=== PATIENT | male | born 1990 ===

== ENCOUNTER 2022-01-01 18:39 | Emergency (ER) | payer SELFPAY ==
[2022-01-01 23:30] VITALS: BP 148/101
[2022-01-02] MEDS ORDERED: HYDROcodone/ACETAMINOPHEN 5-325 MG TAB PO ONE (00:28)
[2022-01-02] MEDS ORDERED: TETANUS,DIPH,PERTUSS(ACELL) VACCINE 0.5 ML SYRINGE IM ONE (00:28)
[2022-01-02] MEDS ORDERED: LIDOCAINE (1%) 10 MG/1 ML VIAL 20 ML MDV INFILTRATI ONE (00:28)
[2022-01-02] MEDS ORDERED: IBUPROFEN 600 MG TAB PO ONE (00:28)
[2022-01-02] MEDS ORDERED: ONDANSETRON 4 MG ODT TAB PO ONE (00:28)
--- NOTE | 2022-01-02 01:58 | Emergency Department Report ---
- General Chief Complaint: Wound/Laceration Stated Complaint: CUT ON LT FINGER Source: patient Mode of arrival: Ambulatory Limitations: No Limitations - History of Present Illness Initial Comments: Patient is a 31-year-old male with no past medical history and who is not up-to-date with his tetanus vaccinations presents to the ED with complaint of acute onset bleeding painful left small finger laceration on palmar side after he accidentally cut his left small finger with a knife when cutting a piece of paper. Patient states that the bleeding is well controlled at this time. Patient denies numbness and tingling or weakness of left hand or left small finger, nausea and vomiting or syncope. -: Sudden, hour(s) (6) Location: other (left small finger) Extremity Location: Left: Hand (left small finger laceration) Place: home Patient Tetanus UTD: No (Given during this visit) Context: accidental, sharp object use Associated Symptoms: pain. denies: loss of feeling/numbness, suspect foreign body present, unable to move injured part, weakness followed by dizziness, nausea/vomiting, fever - Related Data Previous Rx's Medication Instructions Recorded Last Taken Type Ibuprofen [Motrin] 800 mg PO Q8HR PRN #30 tablet 01/02/22 Unknown Rx cephALEXin [Keflex] 500 mg PO Q8HR #30 cap 01/02/22 Unknown Rx Allergies Allergy/AdvReac Type Severity Reaction Status Date / Time No Known Allergies Allergy Verified 01/01/22 19:55 ED Review of Systems ROS: Stated complaint: CUT ON LT FINGER Other details as noted in HPI Constitutional: denies: chills, fever Eyes: denies: eye pain, eye discharge, vision change ENT: denies: ear pain, throat pain Respiratory: denies: cough, shortness of breath, wheezing Cardiovascular: denies: chest pain, palpitations Endocrine: no symptoms reported Gastrointestinal: denies: abdominal pain, nausea, diarrhea Genitourinary: denies: urgency, dysuria Musculoskeletal: arthralgia (Left small finger pain due to a bleeding laceration wound). denies: back pain, joint swelling Skin: other (Left small finger laceration wound with localized pain). denies: rash, lesions Neurological: denies: headache, weakness, paresthesias Psychiatric: denies: anxiety, depression Hematological/Lymphatic: denies: easy bleeding, easy bruising ED Past Medical Hx - Medications Home Medications: Home Medications Medication Instructions Recorded Confirmed Last Taken Type Ibuprofen [Motrin] 800 mg PO Q8HR PRN #30 tablet 01/02/22 Unknown Rx cephALEXin [Keflex] 500 mg PO Q8HR #30 cap 01/02/22 Unknown Rx ED Physical Exam - General Limitations: No Limitations General appearance: alert, in no apparent distress - Head Head exam: Present: atraumatic, normocephalic, normal inspection - Eye Eye exam: Present: normal appearance, PERRL, EOMI Pupils: Present: normal accommodation - ENT ENT exam: Present: normal exam, normal orophraynx, mucous membranes moist, TM's normal bilaterally, normal external ear exam - Neck Neck exam: Present: normal inspection, full ROM. Absent: tenderness - Respiratory Respiratory exam: Present: normal lung sounds bilaterally. Absent: respiratory distress, wheezes, rales, rhonchi, chest wall tenderness, accessory muscle use, decreased breath sounds, prolonged expiratory - Cardiovascular Cardiovascular Exam: Present: regular rate, normal rhythm, normal heart sounds. Absent: systolic murmur, diastolic murmur, rubs, gallop - GI/Abdominal GI/Abdominal exam: Present: soft, normal bowel sounds. Absent: tenderness, guarding, rebound, hyperactive bowel sounds, hypoactive bowel sounds, organomegaly, mass - Extremities Exam Extremities exam: Present: normal inspection, full ROM, tenderness (Palpable left small finger tenderness due to a 4 cm laceration wound on palmar side), normal capillary refill. Absent: pedal edema, joint swelling - Back Exam Back exam: Present: normal inspection, full ROM. Absent: tenderness, CVA tenderness (R), CVA tenderness (L), muscle spasm, paraspinal tenderness, vertebral tenderness - Neurological Exam Neurological exam: Present: alert, oriented X3, CN II-XII intact, normal gait, reflexes normal - Psychiatric Psychiatric exam: Present: normal affect, normal mood - Skin Skin exam: Present: warm, dry, intact, normal color, other (Bleeding 4 cm laceration wound on left small finger on palmar side). Absent: rash ED Course Vital Signs 01/01/22 01/01/22 19:21 23:29 Temperature 98.7 F 98.2 F Pulse Rate 96 H 117 H Respiratory 18 16 Rate Blood Pressure 163/104 Blood Pressure 148/101 [Right] O2 Sat by Pulse 95 98 Oximetry - Laceration /Wound Repair Left Palm Finger Wound Location: upper extremity (Left small finger laceration on palmar side) Wound Length (cm): 4 Wound's Depth, Shape: superficial, linear Wound Explored: contaminated Irrigated w/ Saline (ccs): 300 Betadine Prep?: Yes Anesthesia: 1% Lidocaine Volume Anesthetic (ccs): 5 Wound Debrided: extensive Wound Repaired With: sutures Suture Size/Type: 4:0, proline Number of Sutures: 7 Sterile Dressing Applied?: Yes Progress: Wound was cleaned extensively with normal saline and Betadine solutions. 1% lidocaine solution was used as a local anesthetic. Prolene 4-0 sutures were used for a total of 7 sutures. Patient tolerated the procedure well. The wound was then dressed appropriately. On reevaluation, the left small finger is neurovascularly intact. ED Medical Decision Making - Medical Decision Making This is a 31-year-old male with no past medical history and who is not up-to-date with his tetanus vaccinations presents to the ED with complaint of acute onset bleeding painful left small finger laceration on palmar side after he accidentally cut his left small finger with a knife when cutting a piece of paper. Patient states that the bleeding is well controlled at this time. In the ED, patient is alert and oriented x3 and is not in distress. Patient was treated for pain in the ED and also received booster tetanus vaccination. The left small finger laceration wound was extensively debrided with normal saline and Betadine solution. Lidocaine 1% solution was used as a local anesthetic through a digital block. When anesthesia was fully achieved, the wound was sutured per protocol using Prolene 4-0 sutures for a total of 7 sutures. Patient tolerated the procedure well. The wound was then dressed appropriately and the patient was discharged home on pain medication and prophylactic antibiot ics and advised to follow-up with his primary care physician in 7 to 10 days for reevaluation. Patient was also advised to return to the ED immediately if symptoms get worse, otherwise follow-up with his primary care physician or return to the ED in 12 to 14 days for suture removal. - Differential Diagnosis Finger laceration; puncture wound; finger injury; Critical care attestation.: If time is entered above; I have spent that time in minutes in the direct care of this critically ill patient, excluding procedure time. ED Disposition Clinical Impression: Laceration of left little finger w/o foreign body w/o damage to nail Qualifiers: Encounter type: initial encounter Qualified Code(s): S61.217A - Laceration without foreign body of left little finger without damage to nail, initial encounter Disposition: HOME / SELF CARE / HOMELESS Is pt being admited?: No Does the pt Need Aspirin: No Condition: Stable Instructions: Sutured Wound Care, [id number], Laceration Care, Adult, [id number] Additional Instructions: [place] la medicacin con alimentos, neo muchos lquidos, rajni un seguimiento con rose mdico de atencin primaria en 7 a 10 alvarez para gordon reevaluacin. Regrese al servicio de urgencias inmediatamente si los sntomas empeoran. De lo contrario, regrese al servicio de urgencias o a rose mdico de atencin primaria en 12 a 14 alvarez para que le retiren las suturas. Prescriptions: cephALEXin [Keflex] 500 mg PO Q8HR #30 cap Ibuprofen [Motrin] 800 mg PO Q8HR PRN #30 tablet PRN Reason: Pain , Severe (7-10) Referrals: [facility] [Provider Group] - 7-10 days Time of Disposition: 02:00 Print Language: EGYPTIAN
== END 2022-01-02 02:10 | disposition home or self-care (01) ==
LOC: ED 18:39
DX: S61.217A Laceration without foreign body of left little finger without damage to nail, initial encounter (principal); X58.XXXA Exposure to other specified factors, initial encounter; Y93.89 Activity, other specified; Y92.89 Other specified places as the place of occurrence of the external cause; Y99.8 Other external cause status
CPT/HCPCS: 90471; 90715; 99282; J3490; Q0162